=== PATIENT | female | born 1980 | race Caucasian/White ===

== ENCOUNTER 2020-09-25 07:38 | Day surgery (SDC) | payer MEDICARE, MEDICAID ==
[2020-09-21 11:15] LABS: BASOPHILS # (AUTO) 0.1 X10'3 (0-0.2); BASOPHILS % (AUTO) 0.6 % (0-1); EOSINOPHILS # (AUTO) 0.1 X10'3 (0-0.9); EOSINOPHILS % (AUTO) 0.9 % (0-6); LYMPHOCYTES # (AUTO) 1.8 X10'3 (1.1-4.8); LYMPHOCYTES % (AUTO) 19.5 % (21-51); MEAN CORPUSCULAR HGB CONC 34.4 g/dL (33.0-36.5); MEAN CORPUSCULAR VOLUME 93.1 FL (78-98); MEAN PLATELET VOLUME 8.4 FL (7.4-10.4); MONOCYTES # (AUTO) 0.3 X10'3 (0-0.9); MONOCYTES % (AUTO) 3.5 % (2-12); NEUTROPHILS % (AUTO) 75.5 % (42-75); PRE OP HEMATOCRIT 39.1 % (35.0-45.0); PRE OP HEMOGLOBIN 13.5 g/dL (12.0-16.0); PRE OP PLATELET COUNT 288 X10'3 (140-440)
[2020-09-21 11:24] LABS: HCG SERUM QL NEGATIVE
[2020-09-21 11:28] LABS: ALBUMIN 3.1 G/DL (3.4-5.0); ALBUMIN/GLOBULIN RATIO 0.6 (1.1-1.5); ALKALINE PHOSPHATASE 84 IU/L (46-116); BLOOD UREA NITROGEN 11 MG/DL (7-18); BUN/CREATININE RATIO 15.3 (6.6-38.0); CALCIUM 9.8 MG/DL (8.5-10.1); CHLORIDE 103 MMOL/L (99-107); CREATININE 0.72 MG/DL (0.40-0.90); PRE OP ALT 49 U/L (30-65); PRE OP ANION GAP 14 (8-16); PRE OP AST 54 U/L (10-37); PRE OP BILIRUB, TOTAL 0.3 MG/DL (0.0-1.0); PRE OP GLUCOSE 108 MG/DL (70-104); PRE OP POTASSIUM 4.4 MMOL/L (3.4-5.1); PRE OP SODIUM 138 MMOL/L (135-145); eGFR > 90 ML/MIN
[2020-09-25] VITALS (7 sets, daily range): BP systolic 121–158; BP diastolic 72–98
[~2020-09-25] VITALS: Ht 160 cm; Wt 120.6 kg
[~2020-09-25 07:38] MED LIST: ACET-812 PO; ALPH1TAB4 PO; BUPIVAcaine/PF 2.5mg/ml (0.25%) 10ml vial ONE; CALC500T11 PO; CYCL-1 PO; DIPH-518 PO; DOCU-171 PO; FLUT16SP11 BOTHNARES; GLUC-183 PO; LACT1CAP65 PO; MAGN500C17 PO; MONT10TA21 PO; MULT-85 PO; NAPR-1115 PO; NORG1TAB13 PO; OMEP20TA5 PO; ONDA4TAB6 PO; PSEU120T55 PO; PSYL575P22 PO; [UNRECOGNIZED DRUG - CODE]; [UNRECOGNIZED DRUG - OTHER] PO; ceFAZolin inj. 3,000 MG in normal saline 100ml IV soln 100 ML IV ONE; clindamycin 600mg/D5W 50ml 50 ML IV ONE; famotidine 20mg tablet PO ONE; ringers solution, lacted 1,000 ML IV SCH
[2020-09-25] MEDS ORDERED: diazepam 5mg tablet PO ONE (08:30)
[2020-09-25] MEDS ORDERED: proCHLORperazine 10 MG/2 ml inj IV PRN (08:35)
[2020-09-25] MEDS ORDERED: morphine 4 MG/ML inj SYRINge IV PRN (08:35)
[2020-09-25] MEDS ORDERED: ringers solution, lacted 1,000 ML IV SCH (08:35)
[2020-09-25] MEDS ORDERED: meperidine/PF 25mg/ml syringe IV PRN ×3 (08:35)
[2020-09-25] MEDS ORDERED: morphine 2 MG/ML inj. syringe IV PRN (08:35)
[2020-09-25] MEDS ORDERED: ondansetron/PF 4mg/2ml inj IV PRN (08:35)
[2020-09-25] MEDS ORDERED: fentaNYL/PF 50MCG/1 ML 2ML syringe ONE (10:21)
[2020-09-25] MEDS ORDERED: midazolam 1 mg/ML 2ml injection ONE (10:21)
[2020-09-25] MEDS ORDERED: propofol inj 20 ML IV ONE (10:22)
--- NOTE | 2020-09-25 11:03 | NUR ---
Received from OR via [facility] , accompanied by Anesthesiologist ALEXANDER and report given by Anesthesiolgist. PATIENT WITH RIGHT ELBOW AND WRIST DRESSINGS THAT ARE CDI. VSS. + MOVEMENT AND CAP REFILL TO RIGHT UE. VSS Addendum: 09/25/20 at 1114 by Cornell Berrios RN, RN Amended: Links added.
--- NOTE | 2020-09-25 12:03 | NUR ---
PATIENT VERBALIZED UNDERSTANDING, OPPORTUNITY TO ASK QUESTIONS GIVEN AND PATIENT COMFORTABLE WITH DC. IV TAKEN OUT WITHOUT COMPLICATION. PATIENT HAS MET ALL DC CRITERIA FOR DC HOME. I HAVE REVIEWED D/C INSTRUCTIONS WITH PATIENT. TAKEN OUT VIA WHEELCHAIR WHERE PATIENT WAS TAKEN HOME WITH ALL BELONGINGS. FAMILY GAVE PATIENT TRANSPORT HOME. DOCK OPERATIONS SUPERVISOR ASSISTED WITH DRESSING AND PATIENT TAKEN OUT VIA WHEELCHAIR TO PERSONAL VEHICLE WHERE DOCK OPERATIONS SUPERVISOR DROVE PATIENT HOME. PATIENT DRESSING CDI TO RIGHT UE. Addendum: 09/25/20 at 1213 by Cornell Berrios RN, RN Amended: Links added.
== END 2020-09-25 12:03 | disposition home or self-care (01) ==
LOC: PRE-OP 07:38 → PAS 12:03
PROVIDERS: ATTEND Orthopaedic Surgery Hand Surgery
DX: G56.01 Carpal tunnel syndrome, right upper limb (principal); G56.21 Lesion of ulnar nerve, right upper limb; Z20.822 Contact with and (suspected) exposure to COVID-19; J45.909 Unspecified asthma, uncomplicated; K21.9 Gastro-esophageal reflux disease without esophagitis; F41.9 Anxiety disorder, unspecified; E66.9 Obesity, unspecified; Z68.41 Body mass index [BMI] 40.0-44.9, adult; Z88.0 Allergy status to penicillin; Z79.899 Other long term (current) drug therapy; Z90.49 Acquired absence of other specified parts of digestive tract; Z98.890 Other specified postprocedural states
CPT/HCPCS: 29848; 36415; 64718; 80053; 82948; 84703; 85025; 87635; J2175; J2250; J2270; J2704; J3010; J3490; A4215; A6449; A7000; J7120